=== PATIENT | female | born 1985 | race Caucasian/White ===

== ENCOUNTER 2018-02-28 15:15 | Inpatient (IN) | payer OTHER ==
[~2018-02-28] VITALS: Ht 162.6 cm; Wt 67.4 kg
[2018-02-28 16:27] LABS: HEMATOCRIT 37.3 % (36.0-46.0); HEMOGLOBIN 12.7 G/DL (11.9-15.5); MCH 29.7 PG (29.0-34.0); MCV 87.1 FL (83-99); PLATELET COUNT 139 K/uL (156-360); RBC DIS.WIDTH-SD 43.8 % (39-53); RED BLOOD COUNT 4.28 M/uL (3.80-5.20); WHITE BLOOD COUNT 11.1 K/uL (4.1-10.2)
[2018-02-28 16:47] LABS: TROP-I INTERPRETATION NEGATIVE; TROPONIN-I < 0.01 ng/mL (0.0-0.30)
[2018-02-28 16:50] LABS: BACTERIA NONE SEEN /HPF; EPITHELIAL CELLS 1+ /HPF; HYALINE CASTS 0-5 /LPF; MUCUS 1+ /LPF; RED BLOOD CELLS 0-5 /HPF (0-5)
[2018-02-28 16:58] LABS: ALBUMIN 4.3 G/DL (3.2-4.8); ALKALINE PHOSPHATASE 73 IU/L (3-129); ALT (GPT) 17 IU/L (3-49); AST (GOT) 36 IU/L (2-34); CHLORIDE 99 MEQ/L (99-109); CREATININE 0.7 MG/DL (0.6-1.3); GFR ESTIMATE (CALCULATED) > 59 mL/min/; GLUCOSE 104 mg/dL (70-99); POTASSIUM 3.2 MEQ/L (3.7-5.4); SERUM ETHYL ALCOHOL 33 mg/dL; SODIUM 137 MEQ/L (136-147); TOTAL BILIRUBIN 0.6 MG/DL (0.0-1.0); TOTAL PROTEIN 7.5 G/DL (6.4-8.3); UREA NITROGEN (BUN) 11 mg/dL (9-23)
[2018-02-28] MEDS ORDERED: VITAMIN D31000 UNIT PO (19:23)
[2018-02-28] MEDS ORDERED: FISH OIL 1,0001 EAC7 PO (19:23)
[2018-02-28] MEDS ORDERED: CYANOCOBALAM1000 MCG PO (19:24)
[2018-02-28 19:57] LABS: MAGNESIUM 1.5 mg/dl (1.3-2.7)
[2018-02-28 22:15] VITALS: BP 128/78
[2018-03-01 00:12] VITALS: BP 127/79
[2018-03-01 06:31] LABS: HEMATOCRIT 36.2 % (36.0-46.0); HEMOGLOBIN 11.9 G/DL (11.9-15.5); MCH 29.5 PG (29.0-34.0); MCHC 32.9 G/DL (30.0-36.0); MCV 89.8 FL (83-99); RBC DIS.WIDTH-CV 14.2 % (11.8-14.6); RBC DIS.WIDTH-SD 45.8 % (39-53); RED BLOOD COUNT 4.03 M/uL (3.80-5.20); WHITE BLOOD COUNT 5.2 K/uL (4.1-10.2)
[2018-03-01 06:39] LABS: CHLORIDE 107 MEQ/L (99-109); CREATININE 0.6 MG/DL (0.6-1.3); GFR ESTIMATE (CALCULATED) > 59 mL/min/; GLUCOSE 87 mg/dL (70-99); POTASSIUM 3.6 MEQ/L (3.7-5.4); SODIUM 138 MEQ/L (136-147); UREA NITROGEN (BUN) 7 mg/dL (9-23)
[2018-03-01 07:13] LABS: PLAT.SUFFICIENCY DECREASED; PLATELET COUNT 93 K/uL (156-360)
[2018-03-01 08:03] VITALS: BP 107/69
[2018-03-01 09:40] LABS: MAGNESIUM 1.6 mg/dl (1.3-2.7)
[2018-03-01 17:34] VITALS: BP 140/93
[2018-03-02 00:19] VITALS: BP 116/73
[2018-03-02 04:10] VITALS: BP 102/57
[2018-03-02 05:57] LABS: HEMATOCRIT 36.7 % (36.0-46.0); HEMOGLOBIN 11.6 G/DL (11.9-15.5); MCH 29.5 PG (29.0-34.0); MCHC 31.6 G/DL (30.0-36.0); MCV 93.4 FL (83-99); PLATELET COUNT 85 K/uL (156-360); RBC DIS.WIDTH-CV 14.2 % (11.8-14.6); RBC DIS.WIDTH-SD 47.3 % (39-53); RED BLOOD COUNT 3.93 M/uL (3.80-5.20); WHITE BLOOD COUNT 4.1 K/uL (4.1-10.2)
[2018-03-02 06:21] LABS: CHLORIDE 106 MEQ/L (99-109); POTASSIUM 3.9 MEQ/L (3.7-5.4); SODIUM 136 MEQ/L (136-147)
[2018-03-02 06:27] LABS: CREATININE 0.6 MG/DL (0.6-1.3); GFR ESTIMATE (CALCULATED) > 59 mL/min/; GLUCOSE 100 mg/dL (70-99); UREA NITROGEN (BUN) 9 mg/dL (9-23)
[2018-03-02 07:10] VITALS: BP 108/64
[2018-03-02 11:20] VITALS: BP 110/67
[2018-03-02] MEDS ORDERED: FOLIC ACID1 MG PO (14:30)
[2018-03-02] MEDS ORDERED: THERAGRAN1 TABLET PO (14:30)
[2018-03-02] MEDS ORDERED: BUPROPION XL150 MG PO (14:30)
[2018-03-02] MEDS ORDERED: QUETIAPINE FUMA50 MG PO (14:30)
[2018-03-02] MEDS ORDERED: Thiamine,Vitamin B1 PO (14:30)
== END 2018-03-02 15:56 | disposition home or self-care (01) | DRG 897 ==
LOC: EME 15:15 → 5EAST 19:02 → EDOF 19:02 → ENRESERV 19:17 → 5EAST 21:41
PROVIDERS: Emergency Medicine; Hospitalist; Physician Assistant
DX: F10.239 Alcohol dependence with withdrawal, unspecified (principal); R00.0 Tachycardia, unspecified; R45.851 Suicidal ideations; F41.0 Panic disorder [episodic paroxysmal anxiety]; F41.1 Generalized anxiety disorder; F43.12 Post-traumatic stress disorder, chronic; F60.9 Personality disorder, unspecified; I10 Essential (primary) hypertension; F33.2 Major depressive disorder, recurrent severe without psychotic features; J45.909 Unspecified asthma, uncomplicated; Z62.810 Personal history of physical and sexual abuse in childhood; Z81.1 Family history of alcohol abuse and dependence; Z91.410 Personal history of adult physical and sexual abuse
CPT/HCPCS: 71045; 80048; 80053; 81015; 83735; 84484; 85027; 93005; 99281; 99285; G0480; J1650; J2060; J2405; J3411; J7030

== ENCOUNTER 2018-03-18 15:13 | Emergency (ER) | payer OTHER ==
[~2018-03-18] VITALS: Ht 162.6 cm; Wt 61.4 kg
[~2018-03-18 15:13] MED LIST: BUPROPION XL150 MG PO; CYANOCOBALAM1000 MCG PO; FISH OIL 1,0001 EAC7 PO; FOLIC ACID1 MG PO; QUETIAPINE FUMA50 MG PO; THERAGRAN1 TABLET PO; Thiamine,Vitamin B1 PO; VITAMIN D31000 UNIT PO
[2018-03-18 16:06] LABS: CHLORIDE 97 mEq/L (99-109); POTASSIUM 3.7 mEq/L (3.7-5.4); SODIUM 142 mEq/L (136-147)
[2018-03-18 16:08] LABS: GLUCOSE 91 mg/dL (70-99)
[2018-03-18 16:11] LABS: SERUM ETHYL ALCOHOL 350 mg/dL
[2018-03-18 16:12] LABS: CREATININE 0.8 mg/dL (0.6-1.3); GFR ESTIMATE (CALCULATED) > 59 mL/min/; UREA NITROGEN (BUN) 12 mg/dL (9-23)
[2018-03-18 16:30] LABS: BASOPHIL (%) 0.7 % (0-1); BASOPHIL COUNT 0.1 K/uL (0-0.1); EOSINOPHIL (%) 0.1 % (0-5); HEMATOCRIT 42.7 % (36.0-46.0); HEMOGLOBIN 14.6 G/DL (11.9-15.5); IMMATURE GRANULOCYTE (%) 0.4 % (0.0-0.7); LYMPHOCYTE (%) 20.9 % (15-42); LYMPHOCYTE COUNT 2.9 K/uL (1.0-2.8); MCH 29.7 PG (29.0-34.0); MCHC 34.2 G/DL (30.0-36.0); MCV 86.8 FL (83-99); MONOCYTE (%) 4.1 % (3-12); MONOCYTE COUNT 0.6 K/uL (0-0.8); NEUTROPHIL (%) 73.8 % (45-76); NEUTROPHIL COUNT 10.1 K/uL (1.8-6.4); PLATELET COUNT 355 K/uL (156-360); RBC DIS.WIDTH-CV 13.8 % (11.8-14.6); RBC DIS.WIDTH-SD 43.5 % (39-53); RED BLOOD COUNT 4.92 M/uL (3.80-5.20); WHITE BLOOD COUNT 13.6 K/uL (4.1-10.2)
[2018-03-18 19:11] LABS: APPEARANCE CLEAR ((CLEAR)); BILIRUBIN NEGATIVE; BLOOD NEGATIVE; COLOR COLORLESS ((YELLOW)); GLUCOSE (STRIP) NEGATIVE; KETONES NEGATIVE; LEUKOCYTES NEGATIVE; NITRITE NEGATIVE; PROTEIN (STRIP) NEGATIVE; SPECIFIC GRAVITY 1.004 (1.000-1.030); UCUL ADDED? NO; UROBILINOGEN 0.2 MG/DL (0.2-1.0)
[2018-03-18 19:26] LABS: AMPHETAMINE NEGATIVE (500 ng/mL); BARBITURATES NEGATIVE (200 ng/mL); BENZODIAZEPINES NEGATIVE (150 ng/mL); BUPRENORPHINE NEGATIVE (10 ng/mL); COCAINE NEGATIVE (150 ng/mL); METHADONE NEGATIVE (200 ng/mL); METHAMPHETAMINE NEGATIVE (500 ng/mL); OPIATES (MORPHINE) NEGATIVE (100 ng/mL); OXYCODONE NEGATIVE (100 ng/mL); PHENCYCLIDINE NEGATIVE (25 ng/mL); PROPOXYPHENE NEGATIVE (300 ng/mL); THC CANNABINOIDS NEGATIVE (50 ng/mL); TRICYCLIC ANTIDEPRESSANTS NEGATIVE (300 ng/mL)
[2018-03-19 02:52] VITALS: BP 111/74
[2018-03-19] MEDS ORDERED: LIBRIUM25 MG PO (05:03)
== END 2018-03-19 02:53 | disposition home or self-care (01) ==
LOC: EME 15:13
PROVIDERS: Emergency Medicine
DX: F10.20 Alcohol dependence, uncomplicated (principal); F33.2 Major depressive disorder, recurrent severe without psychotic features; Y90.8 Blood alcohol level of 240 mg/100 ml or more; F43.10 Post-traumatic stress disorder, unspecified; Z62.810 Personal history of physical and sexual abuse in childhood; F41.9 Anxiety disorder, unspecified; J45.909 Unspecified asthma, uncomplicated
CPT/HCPCS: 80048; 81003; 81025; 85025; 90839; 99281; 99285; G0480; J2060; J7030

== ENCOUNTER 2018-03-19 03:45 | Emergency (ER) | payer OTHER ==
[~2018-03-19] VITALS: Ht 162.6 cm; Wt 62.0 kg
[2018-03-19] MEDS ORDERED: LIBRIUM25 MG PO (05:03)
[2018-03-19 05:14] VITALS: BP 132/74
== END 2018-03-19 05:17 | disposition home or self-care (01) ==
LOC: EME 03:45
DX: F41.9 Anxiety disorder, unspecified (principal); J45.909 Unspecified asthma, uncomplicated
CPT/HCPCS: 99281; 99284